=== PATIENT | female | born 1950 | race Two or more races ===

== ENCOUNTER 2016-11-13 08:14 | Day surgery (SDC) | payer MEDICARE, MEDICAID ==
[2016-11-10 13:11] LABS: INR 1.01 (0.9-1.15); Partial Thromboplastin Time 24.7 sec (22.64-33.71); Prothrombin Time 10.4 sec (9.37-12.3)
[2016-11-10 13:54] LABS: Basophils # (auto) 0.1 uL; Basophils % (auto) 0.8 % (0.0-2.0); Eosinophils # (auto) 0.1 uL; Eosinophils % (auto) 1.8 % (0.0-7.0); Hematocrit 39.7 % (36.0-46.0); Lymphocytes # (auto) 2.3 uL; Lymphocytes % (auto) 30.7 % (10.0-50.0); Mean Corpuscular Hemoglobin 29.2 pg (28.0-32.0); Mean Corpuscular Hgb Conc. 32.7 g/dL (32.0-36.0); Mean Corpuscular Volume 89.3 fL (80.0-100.0); Monocytes # (auto) 0.4 uL; Monocytes % (auto) 5.5 % (0.0-12.0); Neutrophils # (auto) 4.7 uL; Neutrophils % (auto) 61.2 % (37.0-80.0); Platelet Count (auto) 271 10^3/uL (140-450); Red Cell Distribution Width 14.1 % (11.6-16.0); White Blood Cell 7.6 10^3/uL (4.4-10.8)
[~2016-11-13] VITALS: Ht 165.1 cm; Wt 79.4 kg
[~2016-11-13 08:14] MED LIST: ATOR10TA PO; ENA10T PO; POTA8TAB2 PO; TRIA75TA55 PO
[2016-11-13] MEDS ORDERED: SODIUM CHLORIDE LOCK 10 ML ONE (08:28)
[2016-11-13] MEDS ORDERED: diphenhdrAMINE HCL 50 MG/1 ML VL ONE (08:28)
[2016-11-13] MEDS: fentaNYL CITRATE 100 MCG/2 ML VL ONE ×3 (09:24→09:32)
[2016-11-13] MEDS: MIDAZOLAM HCL 5 MG/ML-1ML VIAL ONE ×3 (09:24→09:32)
[2016-11-13 10:20] VITALS: BP 134/58
== END 2016-11-13 10:25 | disposition home or self-care (01) ==
LOC: GI 08:14
PROVIDERS: ATTEND Internal Medicine Gastroenterology
DX: Z12.11 Encounter for screening for malignant neoplasm of colon (principal); K63.5 Polyp of colon; K62.1 Rectal polyp; K57.30 Diverticulosis of large intestine without perforation or abscess without bleeding; K64.8 Other hemorrhoids
CPT/HCPCS: 36415; 45380; 45385; 85025; 85049; 85610; 85730; J1200; J2250; J3010; J7030

== ENCOUNTER → 2016-12-18 | Outpatient (CLI) | payer MEDICARE, MEDICAID | END | disposition home or self-care (01) | LOC: XYW 08:58 | PROVIDERS: ATTEND Internal Medicine Cardiovascular Disease | DX: I34.2 Nonrheumatic mitral (valve) stenosis (principal); I35.0 Nonrheumatic aortic (valve) stenosis | CPT/HCPCS: 93306 ==

== ENCOUNTER → 2017-03-30 | Outpatient (CLI) | payer MEDICARE, MEDICAID ==
[2017-03-30 10:21] LABS: Urine RBC None Seen /hpf (0 - 4)
[2017-03-30 10:30] LABS: Basophils # (auto) 0.1 uL; Basophils % (auto) 0.8 % (0.0-2.0); Eosinophils # (auto) 0.3 uL; Eosinophils % (auto) 3.6 % (0.0-7.0); Hematocrit 39.8 % (36.0-46.0); Hemoglobin 13.3 g/dL (12.2-16.2); Lymphocytes # (auto) 2.4 uL; Lymphocytes % (auto) 34.4 % (10.0-50.0); Mean Corpuscular Hgb Conc. 33.4 g/dL (32.0-36.0); Mean Corpuscular Volume 89.8 fL (80.0-100.0); Mean Platelet Volume 9.3 fL (7.4-10.4); Monocytes # (auto) 0.4 uL; Monocytes % (auto) 5.3 % (0.0-12.0); Neutrophils # (auto) 3.9 uL; Neutrophils % (auto) 55.9 % (37.0-80.0); Platelet Count (auto) 256 10^3/uL (140-450); Red Cell Distribution Width 13.7 % (11.6-16.0); White Blood Cell 7.1 10^3/uL (4.4-10.8)
[2017-03-30 10:34] LABS: Urine Bilirubin Negative (Negative); Urine Blood Negative /uL (Negative); Urine Color Yellow (Yellow); Urine Glucose Normal (Normal); Urine Ketone Negative (Negative); Urine Nitrite Negative (Negative); Urine Urobilinogen Normal (Negative); Urine pH 6.5 (5.0-8.0)
[2017-03-30 10:49] LABS: Potassium 4.3 mmol/L (3.5-5.1)
[2017-03-30 10:53] LABS: Albumin 3.9 g/dL (3.4-5.0); BUN/Creatinine Ratio 14.1; Calcium 8.5 mg/dL (8.5-10.1)
[2017-03-30 10:57] LABS: Bilirubin, Total 0.5 mg/dL (0.2-1.0); Total Protein 7.8 g/dL (6.4-8.2)
== END | disposition home or self-care (01) ==
LOC: LAB 08:55
PROVIDERS: ATTEND Internal Medicine
DX: I10 Essential (primary) hypertension (principal)
CPT/HCPCS: 36415; 80053; 80061; 81001; 82043; 82306; 84439; 84443; 85025; 85652